=== PATIENT | female | born 1950 | race Caucasian/White ===

== ENCOUNTER 2017-07-26 23:05 | Emergency (ER) | payer OTHER ==
[~2017-07-26] VITALS: Ht 170.2 cm; Wt 122.2 kg
[~2017-07-26 23:05] MED LIST: ASPIRIN81 M2 PO; CIPROFLOXACIN500 M1 PO; CRESTOR10 MG PO; FLAGYL500 MG PO; PERCOCET 5/31 TABLET PO; PHILLIPS' COLO1 EACH PO; PRILOSEC20 MG PO; PRILOSEC40 MG PO; SYNTHROID175 MCG PO; VITAMIN B-12250 MCG PO; ZANTAC150 MG PO
[2017-07-26 23:34] LABS: HEMATOCRIT 40.8 % (36.0-46.0); HEMOGLOBIN 13.8 G/DL (11.9-15.5); MCH 28.5 PG (29.0-34.0); MCHC 33.8 G/DL (30.0-36.0); MCV 84.1 FL (83-99); PLATELET COUNT 259 K/uL (156-360); RBC DIS.WIDTH-CV 13.7 % (11.8-14.6); RBC DIS.WIDTH-SD 41.9 % (39-53); RED BLOOD COUNT 4.85 M/uL (3.80-5.20); WHITE BLOOD COUNT 10.5 K/uL (4.1-10.2)
[2017-07-26 23:45] LABS: CHLORIDE 107 mEq/L (99-109); POTASSIUM 3.9 mEq/L (3.7-5.4); SODIUM 143 mEq/L (136-147)
[2017-07-26 23:47] LABS: GLUCOSE 116 mg/dL (70-99)
[2017-07-26 23:51] LABS: CREATININE 0.8 mg/dL (0.6-1.3); GFR ESTIMATE (CALCULATED) > 59 mL/min/
[2017-07-26 23:52] LABS: UREA NITROGEN (BUN) 17 mg/dL (9-23)
[2017-07-26 23:59] LABS: TROP-I INTERPRETATION NEGATIVE; TROPONIN-I < 0.01 ng/mL (0.0-0.30)
[2017-07-27 00:51] LABS: MAGNESIUM 2.3 mg/dL (1.3-2.7)
[2017-07-27 02:06] LABS: SCHISTOCYTES RARE
[2017-07-27 02:16] LABS: TROP-I INTERPRETATION NEGATIVE; TROPONIN-I 0.01 ng/mL (0.0-0.30)
[2017-07-27 02:45] LABS: D-DIMER ELISA < 150.00 ng/mLDDU (<230)
[2017-07-27 03:07] VITALS: BP 127/71
== END 2017-07-27 03:08 | disposition home or self-care (01) ==
LOC: EME 23:05
PROVIDERS: Emergency Medicine
DX: R00.2 Palpitations (principal); E78.5 Hyperlipidemia, unspecified; F41.9 Anxiety disorder, unspecified; Z87.442 Personal history of urinary calculi; Z90.49 Acquired absence of other specified parts of digestive tract; Z90.710 Acquired absence of both cervix and uterus
CPT/HCPCS: 71046; 80048; 83735; 84443; 84484; 85027; 85379; 93005; 99281; 99285